=== PATIENT | male | born 1995 | race Caucasian/White ===

== ENCOUNTER 2019-02-23 07:32 | Outpatient (CLI) | payer OTHER ==
[2019-02-23] MEDS ORDERED: Iopamidol 370 76% 100 ML VIAL ONE (09:00)
--- NOTE | 2019-02-23 09:54 | CT ---
CT ABDOMEN AND PELVIS WITH IV CONTRAST: DATE: 02/23/2019. PROVIDED CLINICAL HISTORY: Right lower quadrant pain. FINDINGS: The visualized lung bases are free of significant opacity. Gallstones are seen without evidence for gallbladder distention. The liver, spleen, pancreas, kidney s, and adrenal glands demonstrate no significant abnormality. There is no bowel dilatation, inflammatory fat stranding, free fluid, or lymph node enlargement. The appendix appears normal. There is conspicuous colonic fecal retention suggesting constipation. The osseous structures demonstrate no concerning osteoblastic or osteolytic lesions. IMPRESSION: 1. No evidence for an acute process. 2. Conspicuous colonic fecal retention suggesting constipation. 3. Cholelithiasis. POS: OFF
== END 2019-02-23 07:33 | disposition home or self-care (01) ==
LOC: SCSCT 07:32
PROVIDERS: ATTEND Internal Medicine
DX: K92.1 Melena (principal); R10.31 Right lower quadrant pain; K80.20 Calculus of gallbladder without cholecystitis without obstruction
CPT/HCPCS: 74177; Q9967